=== PATIENT | male | born 1990 | race Native Hawaiian/Other Pacific Islander ===

== ENCOUNTER 2017-03-22 13:08 | Inpatient (IN) | payer OTHER ==
[~2017-03-22 13:08] MED LIST: IBUPROFEN 200200 M1 PO
[2017-03-22] MEDS ORDERED: NORCO 5-325 TA1 EACH PO (16:14)
[2017-03-22] MEDS ORDERED: KEFLEX250 MG PO (16:16)
[2017-03-22 17:35] VITALS: BP 130/61
[2017-03-22 18:00] VITALS: BP 125/67
[2017-03-22 18:30] VITALS: BP 129/54
[2017-03-22 20:00] VITALS: BP 104/46
[2017-03-23] VITALS: BP 97/41
[2017-03-23 04:00] VITALS: BP 97/46
[2017-03-23 08:00] VITALS: BP 107/51
== END 2017-03-23 10:25 | disposition home or self-care (01) | DRG 581 ==
LOC: CAT 13:08 → 4N 18:02 → CAT 18:03 → 4N 18:03 → ENTRNSPT 03-23 12:10 → EDTRNSPTSTS 03-23 12:12 → 4N 03-23 12:32
PROC: 0W9F0ZX Drainage of Abdominal Wall, Open Approach, Diagnostic (ICD-10-PCS; principal; 2017-03-22)
DX: L02.216 Cutaneous abscess of umbilicus (principal); Q64.4 Malformation of urachus
CPT/HCPCS: 10790; 50010; 50101; 50386; 50417; 56524; 56525; 56526; 56527; 56528; 62110; 62900; 70005